=== PATIENT | male | born 1975 | race Caucasian/White ===

== ENCOUNTER 2017-08-02 21:38 | Emergency (ER) | payer BC, OTHER ==
[2017-08-02] MEDS ORDERED: LORazepam 2 MG/ML SDV IVPUSH ONE (23:33)
[2017-08-02] MEDS ORDERED: Ondansetron 4 MG/2 ML SDV IVPUSH ONE (23:33)
--- NOTE | 2017-08-02 23:34 | EDM.PDOC ---
ED HPI GENERAL MEDICAL PROBLEM - General Chief Complaint: Cardiovascular Problem Stated Complaint: TIRED Time Seen by Provider: 08/02/17 23:16 Source of Information: Reports: Patient, Family (spouse) History Limitations: Reports: No Limitations - History of Present Illness INITIAL COMMENTS - FREE TEXT/NARRATIVE: 42-year-old male attends the ED with nonspecific symptoms of upper GI discomfort nausea with lack of ability to eat for the last 2 days. Feels generally weak and tired. Is concerned that he may have underlying heart disease. Patient also has noted that his blood pressures been elevated over the weekend and he has doubled his hydrochlorothiazide from 25-50 mg a day taking them separately. He almost took a third one tonight due to blood pressure being elevated. He recognizes a strong component of anxiety to his symptoms . The worse he feels the higher his blood pressure goes and creates more anxiety. Blood pressure initially was 145/107. He denies cough or fever chills just very poor appetite no bowel movement for 1 day. HC not felt well for about one week. Just much worse over the weekend. He has Fridays off and spent the day resting wasn't motivated to get much else done. He states he's tried eat all day today but can take one or 2 bites in the knees turned off by either the smell of the taste. He therefore is essentially volume depleted. Doesn't feel dizzy or lightheaded upon standing just feels weak like his muscles might give out. Onset: Gradual Onset Date: 07/30/17 Duration: Day(s):, Getting Worse, Intermittent Location: Reports: Generalized (10Sense of feeling ill. Especially so stomach upset nausea no desire to eat with complete loss of appetite.) Quality: Reports: Other. Denies: Ache, Burning, Dull, Pressure, Sharp, Stabbing , Throbbing Severity: Moderate (Morbid generalized weakness) Improves with: Reports: None Worsens with: Reports: Other (Trying to eat.) Context: Denies: Activity, Exercise, Lifting, Sick Contact, Trauma, Other Associated Symptoms: Reports: Loss of Appetite, Malaise, Weakness, Other ( Generalized elevated blood pressure.). 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 (see below) (Doubled his hydrochlorothiazide 25 mg tablets yesterday and today.) - Related Data Allergies Allergy/AdvReac Type Severity Reaction Status Date / Time dextrose Allergy Sneezing Verified 08/02/17 22:10 Home Meds: Home Meds Fish Oil/Everly-3 Fatty Acids [Fish Oil] 0 mg PO DAILY 08/02/17 [History] Hydrochlorothiazide 25 mg PO DAILY 08/02/17 [History] Omeprazole 20 mg PO DAILY 08/02/17 [History] Potassium Chloride [Klor-Con M20] 20 meq PO DAILY #4 tab.er.prt 08/03/17 [Rx] amLODIPine [Norvasc] 5 mg PO DAILY #30 tablet 08/03/17 [Rx] Past Medical History Cardiovascular History: Reports: Hypertension Gastrointestinal History: Reports: GERD - Past Surgical History HEENT Surgical History: Reports: LASIK GI Surgical History: Reports: EGD Social & Family History - Tobacco Use Smoking Status *Q: Never Smoker - Caffeine Use Caffeine Use: Reports: Coffee, Soda, Tea - Recreational Drug Use Recreational Drug Use: No - Living Situation & Occupation Living situation: Reports: Occupation: Employed ED ROS GENERAL - Review of Systems Review Of Systems: See Below Constitutional: Reports: Malaise, Weakness, Fatigue, Decreased Appetite. Denies : Fever, Chills, Weight Loss HEENT: Reports: No Symptoms Respiratory: Reports: No Symptoms. Denies: Cough, Sputum Cardiovascular: Reports: Blood Pressure Problem (Blood pressures been much higher than normal but the weekend. He recognized that). Denies: Chest Pain, Claudication ( the cuff for that he feels the more anxious she becomes that there is something seriously wrong.), Dyspnea on Exertion, Edema, Lightheadedness, Orthopnea, Palpitations, PND, Syncope Endocrine: Reports: Fatigue GI/Abdominal: Reports: Decreased Appetite (Nothing tastes good nothing smells good. 8. Poorly over the last 48 hours.), Nausea (Moderate). Denies: Constipation, Diarrhea, Flatus, Hematemesis, Hematochezia, Melena, Stool Incontinence, Vomiting, Other : Reports: No Symptoms ( made worse by attempting to eat.) Musculoskeletal: Reports: Other (Generalized weakness) Skin: Reports: No Symptoms Neurological: Reports: No Symptoms Psychiatric: Reports: Anxiety Hematologic/Lymphatic: Reports: No Symptoms Immunologic: Reports: No Symptoms ED EXAM, GENERAL - Physical Exam Exam: See Below Exam Limited By: No Limitations General Appearance: Alert, WD/WN, Anxious, Mild Distress Eye Exam: Bilateral Eye: Normal Inspection (No jaundice.) Ears: Normal TMs Throat/Mouth: Other (Tongue is moderately dry and coated white. Infection in the oropharynx.) Head: Atraumatic, Normocephalic Neck: Normal Inspection, Supple, Non-Tender, Full Range of Motion. No: Carotid Bruit, Lymphadenopathy (L), Lymphadenopathy (R), Thyromegaly Respiratory/Chest: Lungs Clear, Normal Breath Sounds (Mild tachypnea at rest I believe due to anxiety.), No Accessory Muscle Use, Chest Non-Tender, Respiratory Distress Cardiovascular: Normal Peripheral Pulses, Regular Rate, Rhythm, No Edema, No Gallop, No Murmur Peripheral Pulses: 2+: Posterior Tibial (L), Posterior Tibial (R), Dorsalis Pedis (L), Dorsalis Pedis (R) GI/Abdominal: Normal Bowel Sounds, Soft, Non-Tender, No Organomegaly, No Abnormal Bruit, No Mass, Pelvis Stable Back Exam: Normal Inspection, Full Range of Motion. No: CVA Tenderness (L), CVA Tenderness (R) Extremities: Normal Inspection, Normal Range of Motion, Non-Tender, No Pedal Edema Neurological: Alert, Oriented, CN II-XII Intact, Normal Cognition, Normal Gait, No Motor/Sensory Deficits Psychiatric: Anxious (Mild.) Skin Exam: Warm, Dry, Intact, Normal Color, No Rash EKG INTERPRETATION EKG Date: 08/02/17 Time: 22:40 Rhythm: NSR Rate (Beats/Min): 72 [place]: LAD-Left [place] Deviation (Left axis deviation of -23.) P-Wave: Present (Borderline first-degree AV block.) QRS: Other (There are Q waves in leads II, III, and F aVF. Consider old inferior wall myocardial infarction although he has no history of VT.) ST-T: Other QT: Prolonged (QT is mildly prolonged at 410.) EKG Interpretation Comments: Abnormal ECG Course - Vital Signs Last Recorded V/S: Last Vital Signs Temp 36.1 C 08/02/17 22:05 Pulse 83 08/02/17 22:05 Resp 20 08/02/17 22:05 BP 135/94 H 08/03/17 01:27 Pulse Ox 99 08/02/17 22:05 - Orders/Labs/Meds Orders: Active Orders 24 hr Category Date Time Status EKG 12 Lead [EKG Documentation Completion] [RC] STAT Care 08/02/17 22:24 Active Dextrose 5%-Lactated Ringers 1,000 ml Med 08/02/17 23:45 Active IV ASDIRECTED Medication Orders Dextrose/Lactated Ringer's (Dextrose 5%-Lactated Ringers) 1,000 mls @ 999 mls/ hr IV ASDIRECTED VANDANA Last Admin: 08/02/17 23:43 Dose: 999 mls/hr Labs: Laboratory Tests 08/02/17 08/02/17 08/02/17 Range/Units 23:49 23:49 23:49 WBC 8.23 (4.23-9.07) K/mm3 RBC 4.95 (4.63-6.08) M/mm3 Hgb 15.6 (13.7-17.5) gm/L Hct 43.6 (40.1-51.0) % MCV 88.1 (79.0-92.2) fl MCH 31.5 (25.7-32.2) pg MCHC 35.8 H (32.2-35.5) g/dl RDW Std Deviation 40.0 (35.1-43.9) fL Plt Count 300 (163-337) K/mm3 MPV 9.0 L (9.4-12.3) fl Neutrophils % (Manual) 69 H (40-60) % Band Neutrophils % 0 (0-10) % Lymphocytes % (Manual) 19 L (20-40) % Atypical Lymphs % 4 % Monocytes % (Manual) 8 (2-10) % Eosinophils % (Manual) 0 L (0.8-7.0) % Basophils % (Manual) 0 L (0.2-1.2) Platelet Estimate Adequate Plt Morphology Comment Normal RBC Morph Comment Normal Sodium 139 (136-145) mEq/L Potassium 2.9 L (3.5-5.1) mEq/L Chloride 99 (98-107) mEq/L Carbon Dioxide 29 (21-32) mEq/L Anion Gap 13.9 (5-15) BUN 14 (7-18) mg/dL Creatinine 0.9 (0.7-1.3) mg/dL Est Cr Clr Drug Dosing 121.78 mL/min Estimated GFR (MDRD) > 60 (>60) mL/min BUN/Creatinine Ratio 15.6 (14-18) Glucose 92 (74-106) mg/dL Calcium 9.6 (8.5-10.1) mg/dL Total Bilirubin 1.2 H (0.2-1.0) mg/dL AST 32 (15-37) U/L ALT 64 H (16-63) U/L Alkaline Phosphatase 74 (46-116) U/L CK-MB (CK-2) 1.1 (0-3.6) ng/ml Troponin I < 0.017 (0.00-0.056) ng/mL C-Reactive Protein < 0.2 (<1.0) mg/dL Total Protein 8.1 (6.4-8.2) g/dl Albumin 4.2 (3.4-5.0) g/dl Globulin 3.9 gm/dL Albumin/Globulin Ratio 1.1 (1-2) Lipase 116 (73-393) U/L H. pylori IgG Antibody Negative (NEGATIVE) Meds: Medications Generic Name Dose Route Start Last Admin Trade Name Freq PRN Reason Stop Dose Admin Dextrose/Lactated Ringer's 1,000 mls @ 999 mls/hr 08/02/17 23:45 08/02/17 23: 43 Dextrose 5%-Lactated Ringers IV 999 mls/hr ASDIRECTED VANDANA Administration Discontinued Medications Generic Name Dose Route Start Last Admin Trade Name Freq PRN Reason Stop Dose Admin Amlodipine Besylate 5 mg 08/03/17 01:18 08/03/17 01:27 Norvasc PO 08/03/17 01:19 5 mg ONETIME ONE Administration Potassium Chloride 10 meq/ 100 mls @ 100 mls/hr 08/03/17 01:09 08/03/17 01:26 Premix IV 08/03/17 02:08 100 mls/hr ONETIME ONE Administration Lorazepam 1 mg 08/02/17 23:33 08/02/17 23:44 Ativan IVPUSH 08/02/17 23:34 1 mg ONETIME ONE Administration Ondansetron HCl 4 mg 08/02/17 23:33 08/02/17 23:44 Zofran IVPUSH 08/02/17 23:34 4 mg ONETIME ONE Administration Potassium Chloride 40 meq 08/03/17 01:19 08/03/17 01:27 Klor-Con M20 PO 08/03/17 01:20 40 meq ONETIME ONE Administration - Radiology Interpretation Free Text/Narrative:: 42-year-old male attends the ED with nonspecific symptoms of generally not feeling well. Particularly his stomach is upset with nausea this made worse by trying to eat. He states food simply doesn't taste good or doesn't smell good when he tries to eat for the last 48 hours. States he has a hollow feeling in his stomach. He has a history of GERD but states that protonic daily has controlled this very well. Her hair is been quite high over the weekend and this is made him quite anxious. Evident is hydrochlorothiazide 25 mg tablet to twice daily yesterday and today. In spite of this his blood pressure remains high which was one of the precipitants for bring him to the ED tonight. He just generally feels weak which makes him more anxious which makes his blood pressure goal even higher. Examination revealed no abnormalities other than hypertension. Plan Ringer's lactate at open. Ativan 1 mg IV. Zofran 4 mg IV. - Re-Assessments/Exams Free Text/Narrative Re-Assessment/Exam: 08/03/17 01:09 White count is 8.23. Differential is 69% neutrophils no bands. Hemoglobin is 15.6. Hematocrit is 43.6. Blood count is 300,000. Sodium is 139 potassium is low at 2.9 as I suspected clinically. Chloride is 99 with a bicarbonate 29. Anion gap is 13.9 BUN is 14. Creatinine is 0.9. Glucose is 92. Total bilirubin is mildly elevated at 1.2. AST is 32 with an ALT of 64. CK-MB fraction is 1.1 troponin I is less than 0.017. C-reactive protein is less than 0.2. Lipase is normal at 116 H. pylori antibody is negative. 08/03/17 01:20: Patient advised of the findings of hypokalemia as I suspected clinically. No other abnormalities were identified in his lab work. Also chest x -ray one view was within normal limits. Plan potassium supplement 10 mg IV over the next half hour. Will give him K-Dur 20 milligrams once daily for the next 5 days to bring his potassium up to normal. Hydrochlorothiazide 25 mg daily is not controlling his blood pressure very well at any rate and is now causing side effects of hypokalemia. Plan will be to discontinue this medication completely and replaced with Norvasc 5 mg a day. He will take this for the next 3 weeks. He will check his blood pressures at home and report to his physician in 3 weeks time to see whether or not he will need an increased dose of Norvasc and how he is tolerating the medication. He should have a minimal amount of side effects particularly sexual side effects which was of concern to the patient. 08/03/17 02:35 patient has completed his 10 mg potassium IV. He is feeling better I think the Ativan 1 mg IV also helped him feel better. He is off work today. 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 I do not do not see a need for him to get a serum potassium level checked soon since the hydrochlorothiazide is going to be discontinued as well. Departure - Departure Time of Disposition: 01:59 Disposition: Home, Self-Care 01 Condition: Fair Clinical Impression: Nonerosive nonspecific gastritis, Hypokalemia, excessive renal losses Adverse effects of medication Qualifiers: Encounter type: initial encounter Qualified Code(s): T88.7XXA - Unspecified adverse effect of drug or medicament, initial encounter Prescriptions: amLODIPine [Norvasc] 5 mg PO DAILY #30 tablet Potassium Chloride [Klor-Con M20] 20 meq PO DAILY #4 tab.er.prt Instructions: Gastritis, Adult, [id number], Hypokalemia Referrals: Jayme Marquez MD [Primary Care Provider] - Forms: ED Department Discharge Additional Instructions: Evaluation the emergency room today in regards to persistent nausea and upset stomach and generalized weakness that developed over the last several days. You' re currently using hydrochlorothiazide 25 mg tablets for blood pressure relief. They themselves did not seem to be working all that well to control your blood pressure. They likely did cause some initial low serum potassium levels but doubling the medication over the last few days made things worse. The only findings today on examination were a low serum potassium level at 2.9 which would account for all of your symptoms particularly nonspecific upset stomach nausea and food not smelling or tasting right. Generalized muscle weakness. Initial potassium dose was given in the ED with potassium chloride 10 mEq intravenously. He will also receive some potassium in Ringer's lactate that was infused as well. 2 minutes and outpatient is to discontinue the hydrochlorothiazide completely and replace this blood pressure medication with Norvasc 5 mg once daily which was started in the ED. This will bring her blood pressure under good control and have no effect on potassium levels. Suggest a potassium supplement 20 mg once a potassium once daily every morning for the next 5 days starting later this morning with breakfast or dinner whatever milieu get today. It should ideally be taken with food rather empty stomach. Just follow-up with personal physician in 3 weeks' time to further assess your blood pressure and see if the Norvasc 5 mg is doing the trick or you need a slightly larger dose. - My Orders Last 24 Hours: My Active Orders 08/02/17 22:24 EKG 12 Lead [EKG Documentation Completion] [RC] STAT 08/02/17 23:45 Dextrose 5%-Lactated Ringers 1,000 ml IV ASDIRECTED - Assessment/Plan Last 24 Hours: My Active Orders 08/02/17 22:24 EKG 12 Lead [EKG Documentation Completion] [RC] STAT 08/02/17 23:45 Dextrose 5%-Lactated Ringers 1,000 ml IV ASDIRECTED
[2017-08-02] MEDS ORDERED: Dextrose 5%-Lactated Ringers 1,000 ML IV SCH (23:45)
[2017-08-03] MEDS ORDERED: Potassium Chloride 10 MEQ in Premix Bag 1 BAG IV ONE (01:09)
[2017-08-03] MEDS ORDERED: amLODIPine 5 MG Tab PO ONE (01:18)
[2017-08-03] MEDS ORDERED: Potassium Chloride 20 MEQ Tab.ER PO ONE (01:19)
== END 2017-08-03 02:27 | disposition home or self-care (01) ==
LOC: SUPCPDRO 21:38 → JD.ED 21:38
DX: K29.70 Gastritis, unspecified, without bleeding (principal); E87.6 Hypokalemia; N28.89 Other specified disorders of kidney and ureter; T50.2X5A Adverse effect of carbonic-anhydrase inhibitors, benzothiadiazides and other diuretics, initial encounter; I10 Essential (primary) hypertension; K21.9 Gastro-esophageal reflux disease without esophagitis; Z79.899 Other long term (current) drug therapy; Z88.8 Allergy status to other drugs, medicaments and biological substances
CPT/HCPCS: 36415; 80053; 82553; 83690; 84484; 85025; 86140; 86677; 93005; 96361; 96365; 96375; 99284; A9270; J2060; J2405; J3480; J7042; 93010